=== PATIENT | female | born 1950 | race Caucasian/White ===

== ENCOUNTER 2017-03-25 06:17 | Outpatient (CLI) | payer OTHER ==
[~2017-03-25 06:17] MED LIST: CARBAMAZEPINE200 MG PO; CIMETIDINE400 MG PO; DIAZEPAM10 MG PO; GABAPENTIN400 M1 PO; GILTUSS LIQUID237 M1 PO; KETO10TA2 PO; NEURONTIN PO; ORPH100T PO; PROPOXY-N/APAP1 TAB PO; SYNTHROID50 MCG PO; SYNTHROID75 MCG; TEGRETOL200 MG PO; TIZANIDINE HCL4 MG PO; VALIUM5 MG/M1 IJ; ZITHROMAX Z PACK
== END 2017-03-25 06:38 | disposition home or self-care (01) ==
LOC: LAB 06:17
DX: I10 Essential (primary) hypertension (principal); E11.9 Type 2 diabetes mellitus without complications; E03.8 Other specified hypothyroidism; E78.2 Mixed hyperlipidemia; K92.1 Melena; D64.0 Hereditary sideroblastic anemia; Z12.11 Encounter for screening for malignant neoplasm of colon

== ENCOUNTER 2017-03-25 08:04 | Outpatient (CLI) | payer OTHER | END 2017-03-25 08:11 | disposition home or self-care (01) | LOC: TOM 08:04 | DX: R41.2 Retrograde amnesia (principal) ==

== ENCOUNTER 2017-03-31 07:42 | Outpatient (CLI) | payer OTHER | END 2017-03-31 07:58 | disposition home or self-care (01) | LOC: NUCLEAR 07:42 | DX: I10 Essential (primary) hypertension (principal); I50.9 Heart failure, unspecified; J44.9 Chronic obstructive pulmonary disease, unspecified | CPT/HCPCS: 78452; 93017; A9500; J0153 ==

== ENCOUNTER 2017-07-04 08:39 | Outpatient (CLI) | payer OTHER | END 2017-07-04 13:34 | disposition home or self-care (01) | LOC: MAMO-SONO 08:39 | DX: Z12.31 Encounter for screening mammogram for malignant neoplasm of breast (principal); Z87.898 Personal history of other specified conditions; D12.0 Benign neoplasm of cecum ==

== ENCOUNTER 2017-07-15 10:38 | Outpatient (CLI) | payer OTHER | END 2017-07-15 17:00 | disposition home or self-care (01) | LOC: MRI 10:38 | DX: R41.3 Other amnesia (principal); G40.909 Epilepsy, unspecified, not intractable, without status epilepticus | CPT/HCPCS: 70553; A9579 ==

== ENCOUNTER 2017-08-22 11:46 | Outpatient (CLI) | payer OTHER | END 2017-08-22 16:30 | disposition home or self-care (01) | LOC: SONOGRAMA 11:46 | DX: M65.811 Other synovitis and tenosynovitis, right shoulder (principal) ==

== ENCOUNTER → 2017-08-22 | Outpatient (CLI) | payer OTHER | END | disposition home or self-care (01) | LOC: NUCLEAR 09:39 | DX: M81.0 Age-related osteoporosis without current pathological fracture (principal) ==

== ENCOUNTER 2017-12-18 08:19 | Emergency (ER) | payer OTHER ==
[~2017-12-18] VITALS: Ht 152.4 cm; Wt 72.6 kg
== END 2017-12-18 11:54 | disposition home or self-care (01) ==
LOC: ER 08:19
DX: M70.71 Other bursitis of hip, right hip (principal); M25.551 Pain in right hip

== ENCOUNTER 2018-08-29 08:33 | Outpatient (CLI) | payer OTHER | END 2018-08-29 08:43 | disposition home or self-care (01) | LOC: SONOGRAMA 08:33 | DX: M19.90 Unspecified osteoarthritis, unspecified site (principal) ==

== ENCOUNTER → 2019-01-10 | Outpatient (CLI) | payer OTHER | END | disposition home or self-care (01) | LOC: MRI 10:14 | DX: F09 Unspecified mental disorder due to known physiological condition (principal); F03.90 Unspecified dementia, unspecified severity, without behavioral disturbance, psychotic disturbance, mood disturbance, and anxiety | CPT/HCPCS: 70551 ==

== ENCOUNTER → 2019-02-12 | Outpatient (CLI) | payer OTHER | END | disposition home or self-care (01) | LOC: MAMO-SONO 08:45 | DX: N63.11 Unspecified lump in the right breast, upper outer quadrant (principal); Z12.31 Encounter for screening mammogram for malignant neoplasm of breast ==

== ENCOUNTER → 2019-05-22 | Outpatient (CLI) | payer OTHER | END | disposition home or self-care (01) | LOC: MRI 09:35 | DX: M54.6 Pain in thoracic spine (principal) | CPT/HCPCS: 72146 ==

== ENCOUNTER → 2019-08-01 09:22 | Outpatient (CLI) | payer OTHER | END | disposition home or self-care (01) | LOC: EKG 09:22 | PROVIDERS: ATTEND Internal Medicine Cardiovascular Disease | DX: I10 Essential (primary) hypertension (principal); J44.9 Chronic obstructive pulmonary disease, unspecified ==

== ENCOUNTER → 2019-11-06 | Outpatient (CLI) | payer OTHER | END | disposition home or self-care (01) | LOC: SONOGRAMA 10:49 → SCREENING 10:49 | PROVIDERS: ATTEND Internal Medicine Cardiovascular Disease | DX: Z12.31 Encounter for screening mammogram for malignant neoplasm of breast (principal); E04.2 Nontoxic multinodular goiter; E03.8 Other specified hypothyroidism; N63.11 Unspecified lump in the right breast, upper outer quadrant ==

== ENCOUNTER 2020-03-14 07:15 | Outpatient (CLI) | payer OTHER | END 2020-03-14 07:17 | disposition home or self-care (01) | LOC: MRI 07:15 | PROVIDERS: ATTEND Anesthesiology | DX: M51.37 Other intervertebral disc degeneration, lumbosacral region (principal); M54.5 Low back pain | CPT/HCPCS: 72148 ==

== ENCOUNTER 2020-09-17 08:32 | Emergency (ER) | payer OTHER ==
[~2020-09-17] VITALS: Ht 152.4 cm; Wt 72.6 kg
[2020-09-17] MEDS ORDERED: MEDROLPACK PO (10:17)
[2020-09-17] MEDS ORDERED: NORFLEX100MG PO (10:17)
[2020-09-17] MEDS ORDERED: KETO10TA2 PO (10:17)
== END 2020-09-17 11:07 | disposition home or self-care (01) ==
LOC: ER 08:32
DX: M54.2 Cervicalgia (principal); M79.642 Pain in left hand; M79.641 Pain in right hand

== ENCOUNTER 2020-12-11 07:32 | Outpatient (CLI) | payer OTHER ==
[~2020-12-11 07:32] MED LIST changes: +MEDROLPACK PO; +NORFLEX100MG PO
== END 2020-12-11 07:42 | disposition home or self-care (01) ==
LOC: MAMO-SONO 07:32
PROVIDERS: ATTEND Internal Medicine Cardiovascular Disease
DX: N63.11 Unspecified lump in the right breast, upper outer quadrant (principal); Z12.31 Encounter for screening mammogram for malignant neoplasm of breast

== ENCOUNTER → 2021-04-01 11:04 | Outpatient (CLI) | payer OTHER | END | disposition home or self-care (01) | LOC: LAB 11:04 | PROVIDERS: ATTEND Radiology Diagnostic Radiology | DX: R41.3 Other amnesia (principal) ==

== ENCOUNTER 2021-04-13 07:19 | Outpatient (CLI) | payer OTHER | END 2021-04-13 07:30 | disposition home or self-care (01) | LOC: MRI 07:19 | PROVIDERS: ATTEND Neuromusculoskeletal Medicine & OMM | DX: R41.3 Other amnesia (principal); D49.6 Neoplasm of unspecified behavior of brain; G40.909 Epilepsy, unspecified, not intractable, without status epilepticus | CPT/HCPCS: 70553; Q9965 ==

== ENCOUNTER 2021-04-21 07:28 | Outpatient (CLI) | payer OTHER | END 2021-04-21 07:33 | disposition home or self-care (01) | LOC: MRI 07:28 | PROVIDERS: ATTEND Anesthesiology | DX: M25.561 Pain in right knee (principal) | CPT/HCPCS: 73718 ==

== ENCOUNTER 2021-06-25 07:15 | Inpatient (IN) | payer OTHER ==
[~2021-06-25] VITALS: Ht 152.4 cm; Wt 72.6 kg
[2021-07-01] MEDS ORDERED: BACLOFEN20 MG (08:12)
[2021-07-01] MEDS ORDERED: ALENDRONATE SOD70 MG (08:12)
[2021-07-02] MEDS ORDERED: ELIQUIS2.5 MG PO (14:35)
[2021-07-02] MEDS ORDERED: PERCOCET 5-3251 EACH PO (14:35)
[2021-07-02] MEDS ORDERED: CEFADROXIL500 MG PO (14:35)
== END 2021-07-02 18:59 | disposition home or self-care (01) | DRG 470 ==
LOC: O/R 06-30 05:33 → SURG 06-30 05:33 → SURH 06-30 07:00 → SURG 06-30 10:05
PROVIDERS: ADMIT Orthopaedic Surgery; ATTEND Orthopaedic Surgery
PROC: 0SRC0J9 Replacement of Right Knee Joint with Synthetic Substitute, Cemented, Open Approach (ICD-10-PCS; principal; 2021-06-30 07:00)
DX: M17.11 Unilateral primary osteoarthritis, right knee (principal); D62 Acute posthemorrhagic anemia; M22.11 Recurrent subluxation of patella, right knee; Z20.822 Contact with and (suspected) exposure to COVID-19; G40.909 Epilepsy, unspecified, not intractable, without status epilepticus

== ENCOUNTER 2021-12-16 07:35 | Outpatient (CLI) | payer OTHER ==
[~2021-12-16 07:35] MED LIST changes: +ALENDRONATE SOD70 MG; +BACLOFEN20 MG; +CEFADROXIL500 MG PO; +ELIQUIS2.5 MG PO; +PERCOCET 5-3251 EACH PO
== END 2021-12-16 07:43 | disposition home or self-care (01) ==
LOC: SONOGRAMA 07:35
PROVIDERS: ATTEND Internal Medicine Gastroenterology
DX: R10.9 Unspecified abdominal pain (principal)

== ENCOUNTER 2022-02-08 08:36 | Outpatient (CLI) | payer OTHER | END 2022-02-08 08:43 | disposition home or self-care (01) | LOC: LAB 08:36 | PROVIDERS: ATTEND Internal Medicine Gastroenterology | DX: Z12.11 Encounter for screening for malignant neoplasm of colon (principal) ==

== ENCOUNTER 2022-03-08 09:04 | Outpatient (CLI) | payer OTHER | END 2022-03-08 09:05 | disposition home or self-care (01) | LOC: LAB 09:04 | PROVIDERS: ATTEND Internal Medicine Cardiovascular Disease | DX: I10 Essential (primary) hypertension (principal); E11.9 Type 2 diabetes mellitus without complications; E03.9 Hypothyroidism, unspecified; E78.2 Mixed hyperlipidemia; Z12.11 Encounter for screening for malignant neoplasm of colon; E55.9 Vitamin D deficiency, unspecified ==

== ENCOUNTER 2022-03-10 09:00 | Outpatient (CLI) | payer OTHER | END 2022-03-10 09:06 | disposition home or self-care (01) | LOC: MAMO-SONO 09:00 | PROVIDERS: ATTEND Internal Medicine Cardiovascular Disease | DX: N63.11 Unspecified lump in the right breast, upper outer quadrant (principal) ==

== ENCOUNTER 2022-03-30 11:40 | Outpatient (CLI) | payer OTHER | END 2022-03-30 11:45 | disposition home or self-care (01) | LOC: RAD 11:40 | PROVIDERS: ATTEND Physical Medicine & Rehabilitation | DX: M17.11 Unilateral primary osteoarthritis, right knee (principal); W19.XXXA Unspecified fall, initial encounter ==

== ENCOUNTER → 2022-04-09 | Outpatient (CLI) | payer OTHER | END | disposition home or self-care (01) | LOC: TOM 07:49 | PROVIDERS: ATTEND Internal Medicine Cardiovascular Disease | DX: N80.9 Endometriosis, unspecified (principal); N89.8 Other specified noninflammatory disorders of vagina ==

== ENCOUNTER 2022-06-10 07:25 | Outpatient (CLI) | payer OTHER | END 2022-06-10 07:26 | disposition home or self-care (01) | LOC: NUCLEAR 07:25 | PROVIDERS: ATTEND Internal Medicine Cardiovascular Disease | DX: I20.1 Angina pectoris with documented spasm (principal) | CPT/HCPCS: 78452; 93017; A9500; J0153 ==

== ENCOUNTER 2022-07-05 07:56 | Emergency (ER) | payer OTHER ==
[~2022-07-05] VITALS: Ht 152.4 cm; Wt 72.6 kg
== END 2022-07-05 11:40 | disposition home or self-care (01) ==
LOC: ER 07:56
DX: M54.9 Dorsalgia, unspecified (principal); Z88.8 Allergy status to other drugs, medicaments and biological substances

== ENCOUNTER 2022-08-10 08:17 | Outpatient (CLI) | payer OTHER | END 2022-08-10 08:27 | disposition home or self-care (01) | LOC: TOM 08:17 | PROVIDERS: ATTEND Internal Medicine Cardiovascular Disease | DX: H90.A12 Conductive hearing loss, unilateral, left ear with restricted hearing on the contralateral side (principal) ==

== ENCOUNTER 2022-10-27 09:18 | Outpatient (CLI) | payer OTHER | END 2022-10-27 09:22 | disposition home or self-care (01) | LOC: MRI 09:18 | PROVIDERS: ATTEND Neuromusculoskeletal Medicine & OMM | DX: R41.3 Other amnesia (principal) | CPT/HCPCS: 70551 ==

== ENCOUNTER → 2023-01-25 10:41 | Outpatient (CLI) | payer OTHER | END | disposition home or self-care (01) | LOC: NUCLEAR 01-11 13:15 | PROVIDERS: ATTEND Internal Medicine Cardiovascular Disease | DX: M81.0 Age-related osteoporosis without current pathological fracture (principal); E55.9 Vitamin D deficiency, unspecified ==

== ENCOUNTER 2023-03-11 07:37 | Outpatient (CLI) | payer OTHER | END 2023-03-11 07:52 | disposition home or self-care (01) | LOC: MAMO-SONO 07:37 | PROVIDERS: ATTEND Internal Medicine Cardiovascular Disease | DX: N60.12 Diffuse cystic mastopathy of left breast (principal); Z12.31 Encounter for screening mammogram for malignant neoplasm of breast ==

== ENCOUNTER 2024-01-06 10:48 | Outpatient (CLI) | payer OTHER | END 2024-01-06 11:25 | disposition home or self-care (01) | LOC: MRI 10:48 | PROVIDERS: ATTEND Internal Medicine Cardiovascular Disease | DX: M54.50 Low back pain, unspecified (principal) | CPT/HCPCS: 72148 ==

== ENCOUNTER 2024-04-24 08:40 | Outpatient (CLI) | payer OTHER | END 2024-04-24 08:41 | disposition home or self-care (01) | LOC: MAMO-SONO 08:40 | PROVIDERS: ATTEND Internal Medicine Cardiovascular Disease | DX: N60.11 Diffuse cystic mastopathy of right breast (principal); N60.12 Diffuse cystic mastopathy of left breast; Z12.31 Encounter for screening mammogram for malignant neoplasm of breast ==

== ENCOUNTER 2024-11-16 09:18 | Outpatient (CLI) | payer OTHER | END 2024-11-16 09:31 | disposition home or self-care (01) | LOC: MRI 09:18 | PROVIDERS: ATTEND Anesthesiology | DX: M54.50 Low back pain, unspecified (principal) | CPT/HCPCS: 72148 ==

== ENCOUNTER 2024-12-12 13:39 | Outpatient (CLI) | payer OTHER | END 2024-12-12 13:47 | disposition home or self-care (01) | LOC: SONOGRAMA 13:39 | PROVIDERS: ATTEND Neuromusculoskeletal Medicine & OMM | DX: E04.1 Nontoxic single thyroid nodule (principal) ==

== ENCOUNTER → 2025-01-22 10:54 | Outpatient (CLI) | payer OTHER | END | disposition home or self-care (01) | LOC: RAD 10:54 | DX: M51.360 Other intervertebral disc degeneration, lumbar region with discogenic back pain only (principal); M50.00 Cervical disc disorder with myelopathy, unspecified cervical region ==

== ENCOUNTER 2025-01-28 09:39 | Outpatient (CLI) | payer OTHER | END 2025-01-28 09:47 | disposition home or self-care (01) | LOC: MRI 09:39 | PROVIDERS: ATTEND Orthopaedic Surgery Orthopaedic Surgery of the Spine | DX: M50.00 Cervical disc disorder with myelopathy, unspecified cervical region (principal) | CPT/HCPCS: 72141 ==